=== PATIENT | female | born 1945 | race Caucasian/White ===

== ENCOUNTER 2017-02-18 11:54 | Outpatient (CLI) | payer MEDICARE, BC ==
[2017-02-18 19:43] LABS: BASOPHILS # (AUTO) 0.1 10^3/uL (0.0-0.1); BASOPHILS % (AUTO) 1.2 %; EOSINOPHILS % (AUTO) 0.7 %; HCT - HEMATOCRIT 45.9 % (37.0-47.0); HGB - HEMOGLOBIN 15.1 g/dL (12.0-16.0); LYMPHOCYTES # (AUTO) 1.3 10^3/uL (1.5-3.5); LYMPHOCYTES % (AUTO) 18.3 %; MEAN CORPUSCULAR HEMOGLOBIN 31.6 pg (27.0-31.0); MEAN CORPUSCULAR HGB CONC 32.8 g/dL (32.0-36.0); MEAN CORPUSCULAR VOLUME 96.4 fL (81.0-99.0); MEAN PLATELET VOLUME 10.8 fL (7.9-10.8); MONOCYTES # (AUTO) 0.5 10^3/uL (0.0-1.0); MONOCYTES % (AUTO) 7.7 %; NEUTROPHILS % (AUTO) 72.1 %; NUCLEATED RED BLOOD CELLS AUTO 0.2 /100WBC; RED BLOOD COUNT 4.77 10^6/uL (4.20-5.40); RED CELL DISTRIBUTION WIDTH 13.6 % (12.0-15.0); UNCORRECTED WHITE BLOOD COUNT 6.9 x10^3/uL; WHITE BLOOD COUNT 6.9 x10^3/uL (4.8-10.8)
[2017-02-18 19:51] LABS: ALBUMIN/GLOBULIN RATIO 1.3 (1.0-2.2); BILIRUBIN,TOTAL 0.8 mg/dL (0.2-1.0); BUN - BLOOD UREA NITROGEN 19 mg/dL (6-20); CALCIUM 9.7 mg/dL (8.5-10.3); CARBON DIOXIDE - CO2 29 mmol/L (21-32); CHLORIDE 100 mmol/L (101-111); CHOL/HDL RATIO 2.6 (<4.4); CHOLESTEROL 240 mg/dL; CREATININE 1.4 mg/dL (0.4-1.0); GFR - MDRD 37 (>89); GLUCOSE 88 mg/dL (70-100); HDL CHOLESTEROL 94 mg/dL; LDL/HDL RATIO 1.3 (<4.4); SODIUM 138 mmol/L (135-145); TOTAL PROTEIN 7.5 g/dL (6.7-8.2); TRIGLYCERIDES 103 mg/dL; VLDL CHOLESTEROL 21 mg/dL
== END 2017-02-18 11:55 | disposition home or self-care (01) ==
LOC: LAB.WCP 11:54
PROVIDERS: ATTEND Family Medicine
DX: R06.02 Shortness of breath (principal); Z13.220 Encounter for screening for lipoid disorders
CPT/HCPCS: 36415; 80053; 80061; 83880; 85025

== ENCOUNTER 2019-02-16 07:16 | Outpatient (CLI) | payer MEDICARE, BC ==
[2019-02-16 12:53] LABS: BASOPHILS # (AUTO) 0.1 10^3/uL (0.0-0.1); BASOPHILS % (AUTO) 1.3 %; EOSINOPHILS # (AUTO) 0.3 10^3/uL (0.0-0.7); EOSINOPHILS % (AUTO) 4.6 %; HGB - HEMOGLOBIN 15.6 g/dL (12.0-16.0); LYMPHOCYTES # (AUTO) 2.5 10^3/uL (1.5-3.5); LYMPHOCYTES % (AUTO) 41.7 %; MEAN CORPUSCULAR HGB CONC 31.5 g/dL (32.0-36.0); MEAN CORPUSCULAR VOLUME 101.6 fL (81.0-99.0); MONOCYTES # (AUTO) 0.6 10^3/uL (0.0-1.0); MONOCYTES % (AUTO) 10.4 %; NEUTROPHILS # (AUTO) 2.5 10^3/uL (1.5-6.6); NEUTROPHILS % (AUTO) 41.8 %; PLT - PLATELET COUNT 191 10^3/uL (130-450); RED BLOOD COUNT 4.88 10^6/uL (4.20-5.40); RED CELL DISTRIBUTION WIDTH 13.6 % (12.0-15.0); WHITE BLOOD COUNT 6.1 x10^3/uL (4.8-10.8)
[2019-02-16 13:18] LABS: ALBUMIN/GLOBULIN RATIO 1.2 (1.0-2.2); ALKALINE PHOSPHATASE 56 IU/L (42-121); ALT ALANINE AMINOTRANSFERASE 20 IU/L (10-60); AST ASPARTATE AMINOTRANSFERASE 28 IU/L (10-42); BILIRUBIN,TOTAL 0.7 mg/dL (0.2-1.0); BUN - BLOOD UREA NITROGEN 15 mg/dL (6-20); CALCIUM 10.1 mg/dL (8.5-10.3); CARBON DIOXIDE - CO2 28 mmol/L (21-32); CHLORIDE 102 mmol/L (101-111); CHOL/HDL RATIO 2.4 (<4.4); CHOLESTEROL 232 mg/dL; CREATININE 1.2 mg/dL (0.4-1.0); GFR - MDRD 44 (>89); GLUCOSE 95 mg/dL (70-100); HDL CHOLESTEROL 98 mg/dL; LDL CHOLESTEROL,CALCULATED 119 mg/dL; LDL/HDL RATIO 1.2 (<4.4); SODIUM 144 mmol/L (135-145); TOTAL PROTEIN 7.4 g/dL (6.7-8.2); VLDL CHOLESTEROL 15 mg/dL
== END 2019-02-16 23:59 | disposition home or self-care (01) ==
LOC: LAB.WCP 07:16
PROVIDERS: ATTEND Family Medicine
DX: M89.9 Disorder of bone, unspecified (principal); E78.5 Hyperlipidemia, unspecified
CPT/HCPCS: 36415; 80053; 80061; 83721; 85025

== ENCOUNTER 2019-02-22 08:00 | Outpatient (CLI) | payer MEDICARE, BC ==
[2019-02-22 18:32] LABS: BASOPHILS # (AUTO) 0.1 10^3/uL (0.0-0.1); EOSINOPHILS # (AUTO) 0.1 10^3/uL (0.0-0.7); EOSINOPHILS % (AUTO) 2.1 %; HGB - HEMOGLOBIN 14.2 g/dL (12.0-16.0); LYMPHOCYTES # (AUTO) 1.8 10^3/uL (1.5-3.5); LYMPHOCYTES % (AUTO) 29.3 %; MEAN CORPUSCULAR HEMOGLOBIN 31.7 pg (27.0-31.0); MEAN CORPUSCULAR HGB CONC 30.9 g/dL (32.0-36.0); MEAN CORPUSCULAR VOLUME 102.5 fL (81.0-99.0); MONOCYTES # (AUTO) 0.5 10^3/uL (0.0-1.0); MONOCYTES % (AUTO) 8.4 %; NEUTROPHILS # (AUTO) 3.6 10^3/uL (1.5-6.6); PLT - PLATELET COUNT 185 10^3/uL (130-450); RED BLOOD COUNT 4.48 10^6/uL (4.20-5.40); RED CELL DISTRIBUTION WIDTH 13.3 % (12.0-15.0); WHITE BLOOD COUNT 6.1 x10^3/uL (4.8-10.8)
== END 2019-02-22 23:59 | disposition home or self-care (01) ==
LOC: LAB.WCP 08:00
PROVIDERS: ATTEND Family Medicine
DX: R53.83 Other fatigue (principal); D75.1 Secondary polycythemia
CPT/HCPCS: 36415; 84443; 85025

== ENCOUNTER 2019-05-01 09:26 | Outpatient (CLI) | payer MEDICARE, BC ==
[~2019-05-01 09:26] MED LIST: ALBUTEROL NEB 2.5 MG/3 ML INH SCH
== END 2019-05-01 09:27 | disposition home or self-care (01) ==
LOC: RT 09:26
PROVIDERS: ATTEND Family Medicine
DX: J44.9 Chronic obstructive pulmonary disease, unspecified (principal)
CPT/HCPCS: 94060; 94375; 94664; 94729

== ENCOUNTER 2020-01-02 15:52 | Outpatient (CLI) | payer MEDICARE, BC ==
--- NOTE | 2020-01-02 16:18 | XRAY Report ---
Reason: COPD Procedure Date: 01/02/2020 Accession Number: [id number] / [id number] Procedure: WCP - Chest 2 View X-Ray CPT Code: 87000 Final Report FULL RESULT: PROCEDURE: Chest 2 View X-Ray INDICATIONS: COPD TECHNIQUE: 2 view(s) of the chest. COMPARISON: 02/18/2017 chest radiographs FINDINGS: Surgical changes and devices: None. Lungs and pleura: Hyperexpanded lungs with flattened hemidiaphragms and enlarged retrosternal airspace. Hyperlucent appearance to the lungs consistent with emphysema. No pleural effusions or pneumothorax. Lungs are clear. Mediastinum: Mediastinal contours are normal. Heart size is normal. Bones and chest wall: Exaggerated kyphosis in the mid and upper thoracic spine with associated chronic-appearing wedging. No suspicious bony abnormalities. Soft tissues appear unremarkable. IMPRESSION: Findings of COPD and emphysema. No acute cardiopulmonary process demonstrated. Reviewed by: David Coulter MD on 01/02/2020 4:17 PM PDT Approved by: David Coulter MD on 01/02/2020 4:17 PM PDT Station ID: [id number]
== END 2020-01-02 23:59 | disposition home or self-care (01) ==
LOC: DI.WCP 15:52
PROVIDERS: ATTEND Family Medicine
DX: J43.9 Emphysema, unspecified (principal)
CPT/HCPCS: 71046

== ENCOUNTER 2020-12-12 10:00 | Outpatient (CLI) | payer MEDICARE, BC ==
--- NOTE | 2020-12-12 12:57 | XRAY Report ---
PROCEDURE: Chest 2 View X-Ray INDICATIONS: COPD, ACUTE EXACERBATION TECHNIQUE: 2 view(s) of the chest. COMPARISON: None. FINDINGS: Surgical changes and devices: None. Lungs and pleura: The lungs are hyperexpanded consistent with underlying emphysema. No acute airspac e opacity. No pleural effusions or pneumothorax. Lungs are clear. Mediastinum: Mediastinal contours are normal. Heart size is normal. The aorta is tortuous. Bones and chest wall: No suspicious bony abnormalities. Soft tissues appear unremarkable. IMPRESSION: 1. No acute cardiopulmonary abnormality. 2. COPD. Reviewed by: Mathieu Castro on 12/12/2020 12:56 PM PDT Approved by: Mathieu Castro on 12/12/2020 12:56 PM PDT Station ID: [id number]
== END 2020-12-12 23:59 | disposition home or self-care (01) ==
LOC: DI.N 10:00
PROVIDERS: ATTEND Family Medicine
DX: J44.9 Chronic obstructive pulmonary disease, unspecified (principal); R05 Cough; Z20.822 Contact with and (suspected) exposure to COVID-19
CPT/HCPCS: 71046; U0004

== ENCOUNTER 2020-12-13 10:30 | Outpatient (CLI) | payer MEDICARE, BC ==
--- NOTE | 2020-12-13 16:15 | CONSULTATION NOTE ---
Palliative Care Consultation - Referral Referring Provider: Dr. Ivelisse Larsen Time of Visit: [id number] Referral setting: Home Referral Reason: Acute Exacerbation of COPD/Goals of Care - Information Sources Records reviewed: Previous records reviewed History/Review of Systems obtained from: Patient, Family (daughter Britney present) Exam limitations: No limitations - History of Present Illness Brief History of Present Illness: This is a najma 75-year-old woman who unfortunately yesterday made contact with myself, secondary to high fever, cough, increased shortness of breath, was sent to urgent care and found to have a exacerbation, and findings on a chest x-ray that showed haziness in right lower lobe. She was started on azithromycin and prednisone, is feeling better today already, though is quite breathless and fatigued. Patient is currently followed by pulmonology, she is only on proair, she uses 2 puffs up to 3 times a day, she has had several exacerbations over the last 3 years, but no hospitalizations. She does present with cachexia, is oxygen, dependent at 3.5 L, she has had declining functional status, and requested to meet with palliative care regarding goals of care. She does understand the seriousness of her illness, but is hoping as far as goals to improve her quality of life, and receive further support regarding the management of both her progressive nature and chronic of her disease process. Patient is quite thin, cachectic, has severe kyphosis. She has diminished breath sounds throughout, she does present today with elevated blood pressure 164/92. She does have a cough, reports is yellowish-green sputum. She is quite weak. She also has multiple food allergies that also increase her phlegm. She has other than her COPD, very few health problems, though does present with suspected osteopenia. Medical/Surgical History - Past Medical History Respiratory: reports: Asthma, COPD, Emphysema Musculoskeletal: reports: Osteopenia, Other (kyphosis) - Past Surgical History General: reports: Appendectomy Social History - Living Situation Living arrangement: Other Living Situation: With family Support System: Patient recently moved in with her daughter Britney, she has been there about 2 weeks. She is quite stressed that she is trying to get her home ready to sell. 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 She is settling in, a nd it appears to be a good fit for both of them. Britney's just recently of colon cancer, so settling into a new routine. Bethany is a teacher, she will be finishing up in the next couple weeks. Family History - Family History Family History: Mother: , Cancer (age 77 brain tumor), Father: , CAD (81 CHF), Sister: Alive and Well, Brother: Alive and Well Medications/Allergies - Medications Home Medications: Ambulatory Orders Medication Instructions Recorded Confirmed Albuterol Sulfate [Proair 2 puffs INH Q6HR PRN 12/13/20 12/13/20 Respiclick] Azithromycin [Zithromax] 250 ng PO DAILY MDD 5 days 12/13/20 12/13/20 Calcium Carbonate [Calcium] 500 ng PO TID 12/13/20 12/13/20 Cholecalciferol (Vitamin D3) 3,000 units PO DAILY 12/13/20 12/13/20 [Vitamin D3] Montelukast [Singulair] 10 mg PO DAILY 12/13/20 12/13/20 predniSONE [Deltasone] 40 mg PO DAILY MDD 5 days 12/13/20 12/13/20 - Allergies Allergies/Adverse Reactions: Allergies Allergy/AdvReac Type Severity Reaction Status Date / Time doxycycline Allergy Anaphylaxis Verified 12/13/20 16:28 codeine AdvReac Nausea Verified 12/13/20 16:28 Review of Systems - Constitutional Constitutional: reports: Fatigue, Fever (102 yesterday), Weakness, Poor appetite - Eyes Eyes: reports: Corrective lenses - Ears, Nose & Throat Ears, Nose & Throat: reports: Dry mouth - Cardiovascular Cardiovascular: reports: Exertional dyspnea, Decr. exercise tolerance. denies: Palpitations, Chest pain, Edema - Respiratory Respiratory: reports: Cough, Sputum production (yellow green), Wheezing, Ortho pnea, SOB at rest, SOB with exertion, Other (oxygen dependent) - Gastrointestinal Gastrointestinal: reports: Early satiety. denies: Constipation, Diarrhea, Naus ea - Genitourinary Genitourinary: denies: Incontinence - Musculoskeletal Musculoskeletal: reports: Stiffness, Muscle weakness - Neurological Neurological: reports: General weakness. denies: Memory problems - Psychiatric Psychiatric: denies: Depression, Anxiety - Hematologic/Lymphatic Hematologic/Lymph: reports: Recurrent infections (12/12) - All Other Systems All Other Systems: reports: Reviewed and negative Physical Exam - Vital Signs Temperature: 97.5 C Pulse Rate: 82 Respiratory Rate: 16 O2 Saturation: 93 (3.5 liters at rest) Blood Pressure: 164/92 - Physical Exam General Appearance: positive: Alert, Mild distress, Cachetic Eyes Bilateral: positive: Normal inspection ENT: positive: No signs of dehydration Neck: positive: Trachea midline Cardiovascular: positive: Regular rate & rhythm Respiratory: positive: Diminished throughout. negative: Wheezes, Rales, Rhonchi Abdomen: positive: Soft Skin: positive: Pallor, Dryness Extremities: positive: No pedal edema Neurologic/Psychiatric: positive: Oriented x3, Mood/affect nml, Weakness Palliative Care - POLST Patient has POLST: Yes POLST Status: DNR, Selective Treatment (completed at visit) Pain: No pain Tiredness/Fatigue: Severe (7-10) Drowsiness/Sedation: Moderate (4-6) Nausea: None Anorexia: Mild (1-3) Dyspnea: Severe (7-10) Depression: Mild (1-3) Anxiety: Mild (1-3) Feelings of wellbeing/Perceived Quality of Life: Fair, Worsening (with acute illness; recent stressors) Sleep: Sleeps well Constipation: No Performance Status: Patient has had declining functional status, able to ambulate her shorter distances as well as poor activity tolerance. She is noted this most significantly over the last couple years, and particularly over the last few. She is able to manage her ADLs, when she is well she is still driving, she just gets very exhausted if not she paces her activities. - Palliative Care Discussion: Patient previously had been really quite active, her goal is to return to some level of activity, to be able to do daily walks, is aware of the seriousness and progressiveness of her illness, but would like to improve overall her functional status. This is been a difficult year with the pandemic, getting ready to move, loss of her son-in-law. We did discuss given her goals of care, she would be a good candidate for pulmonary rehab, will see what her insurance coverage is given financial stressors as well. Patient does have DPOA paperwork done with her daughter Bethany as her main DPOA. She also has a healthcare directive, we did discuss in the context so of her wishes which is a DO NOT RESUSCITATE, it would make sense to complete a POLST. This is completed with DN AR, patient though at this point time would certainly treat reversible conditions, except hospitalization as well as focus is on quality of life and would return somewhat to her previous level of independence. At end-of-life she would like to be at home, she is aware of hospice given her recent experience with her son-in-law. POLST was completed, copy taken to go into her records. Results - Lab Results Lab and Imaging Results: Given patient's progressive fatigue and most limiting symptom, no labs drawn since 2019, will evaluate if anemia is adding to her fatigue level as well as thyroid studies. Impression and Recommendations - Palliative Care Impression: This is a 75-year-old woman with advanced COPD, does appear she has had fairly rapid decline over the last 3 years, reviewing her cna instructor notes, reports findings were consistent with severe airflow obstruction and suggestive concomitant restrictive abnormality and reducing diffusing capacity. Patient fortunately has now also presented with an acute exacerbation of her COPD, and suspected pneumonia. She has improved in the last 24 hours. Palliative care to provide support for symptom management, advanced care planning, and anticipatory guidance Recommendations/Counseling Done: 1. COPD exacerbation. Patient is currently on steroids and azithromycin, does appear to be responding. Patient is minimally managed on ProAir Respitak, She uses 3 times a day, secondary to tightness with good response. She has continued to decrease her activity, and increased her oxygen. Unclear what her baseline will be, will explore at future visits. Instructed goal is to keep her O2 sats above 90%, without higher liter flow, does titrate accordingly. She does have an on-demand concentrator for her travels, discussed that she does feel better with her home concentrator with continuous flow versus on demand, recommended since this does limit her activity, to use the concentrator at home as she does have adequate tubing. Patient given her goals, would most likely be appropriate for pulmonary rehab, will explore if her insurance covers this. 2. Cachexia. Patient with multiple food allergies, as well as exacerbation of phlegm. Patient currently 128, would be better weight at 135 per patient's description. Counseling provided regarding finding alternative food supplements, small frequent feedings, and goal for no further weight loss, weight gain if possible. 3. Fatigue. This is multifactorial, this was even previous to her acute exacerbation, and review will rule out anemia as adding to her baseline, though certainly most likely has anemia of chronic disease as well as well follow-up on thyroid studies. Patient has had minimal interaction with healthcare system secondary to Covid pandemic. 4. Osteopenia. Patient had multiple questions, daughter appropriately concerned regarding patient's frail status and fall if she breaks the bone. Her primary had approached treating her kyphosis/osteopenia, patient been resistant. Requested that she follow-up again given appropriate concerns. 5. Advanced care planning. Patient does have DPOA documents, healthcare directive. Given patient's goals of care, we did complete a POLST with DN AR/DNI and selective treatments. Patient and daughter with good discussion regarding patient's goals of care. 75 minutes with greater than 50% of this done in counseling regarding goals of care, acute exacerbation, disease trajectory, anticipatory guidance.
== END 2020-12-13 10:31 | disposition home or self-care (01) ==
LOC: PC 10:30
PROVIDERS: ATTEND Nurse Practitioner Adult Health
DX: Z51.5 Encounter for palliative care (principal); J43.9 Emphysema, unspecified; R64 Cachexia; R53.83 Other fatigue; M85.80 Other specified disorders of bone density and structure, unspecified site; Z99.81 Dependence on supplemental oxygen; Z66 Do not resuscitate
CPT/HCPCS: 99345

== ENCOUNTER 2021-01-02 10:35 | Outpatient (CLI) | payer MEDICARE, BC ==
[2021-01-02 17:53] LABS: BASOPHILS # (AUTO) 0.1 10^3/uL (0.0-0.1); EOSINOPHILS # (AUTO) 0.2 10^3/uL (0.0-0.7); HGB - HEMOGLOBIN 14.5 g/dL (12.0-16.0); LYMPHOCYTES # (AUTO) 1.1 10^3/uL (1.5-3.5); LYMPHOCYTES % (AUTO) 18.5 %; MEAN CORPUSCULAR HGB CONC 30.9 g/dL (32.0-36.0); MEAN CORPUSCULAR VOLUME 103.8 fL (81.0-99.0); MEAN PLATELET VOLUME 13.4 fL (7.9-10.8); MONOCYTES # (AUTO) 0.5 10^3/uL (0.0-1.0); MONOCYTES % (AUTO) 8.5 %; NEUTROPHILS # (AUTO) 4.1 10^3/uL (1.5-6.6); NEUTROPHILS % (AUTO) 68.8 %; PLT - PLATELET COUNT 191 10^3/uL (130-450); RED BLOOD COUNT 4.53 10^6/uL (4.20-5.40); RED CELL DISTRIBUTION WIDTH 13.2 % (12.0-15.0)
[2021-01-02 17:57] LABS: ALBUMIN 4.1 g/dL (3.2-5.5); ALBUMIN/GLOBULIN RATIO 1.5 (1.0-2.2); BILIRUBIN,TOTAL 0.9 mg/dL (0.2-1.0); CALCIUM 10.3 mg/dL (8.5-10.3); POTASSIUM 4.2 mmol/L (3.5-5.0); TOTAL PROTEIN 6.9 g/dL (6.7-8.2)
[2021-01-02 18:13] LABS: T4 (THYROXINE) 7.85 ug/dL (6.09-12.23)
[2021-01-02 18:17] LABS: THYROID STIMULATING HORMONE 2.51 uIU/mL (0.34-5.60)
== END 2021-01-02 10:36 | disposition home or self-care (01) ==
LOC: LAB.N 10:35
PROVIDERS: ATTEND Nurse Practitioner Adult Health
DX: D64.9 Anemia, unspecified (principal); R53.83 Other fatigue; Z79.899 Other long term (current) drug therapy
CPT/HCPCS: 36415; 80053; 84436; 84443; 85025

== ENCOUNTER 2021-05-08 12:45 | Outpatient (CLI) | payer MEDICARE, BC ==
--- NOTE | 2021-05-08 15:39 | CONSULTATION NOTE ---
Palliative Care Follow Up - Referral Referring Provider: Dr. Atiya Guo Time of Visit: [id number] Referral setting: Home Referral Reason: Advanced COPD/Anxiety - Information Sources Records reviewed: Previous records reviewed History/Review of Systems obtained from: Patient Exam limitations: No limitations - History of Present Illness Update Brief HPI Update: This is a najma 76-year-old woman who has advanced COPD, originally admitted to palliative care in December 2020, with following a exacerbation of her COPD. She had another exacerbation beginning of March, but since then has continued to do okay. She has noted increased shortness of breath with activity, decreased activity tolerance, oxygen saturations have remained between 89 and 96 on 2 to 2-1/2 L. She is at 120, after 4 pound weight loss. She is doing shakes, she is challenged because of food allergies. She reports she is sleeping okay, n onproductive cough. Denies tightness or wheezing. Does need frequent rest periods with any kind of activity but is able to manage her ADLs and continue to drive. Patient's goals are to focus on quality of life, is hoping to improve as far as functionality, though does understand she is diminishing with her respiratory status and some functional decline. She does now have a new walker that is more upright, bending over her walker was causing some increased back pain. She lives with her daughter, her grandson is present and supportive as well. Past Medical History: Asthma, COPD, emphysema, osteopenia, kyphosis, Social History - Living Situation Living arrangement: Other Living Situation: With family Support System: Patient lives with her daughter Bethany, she has finalized to sell of her house. This was quite a stressful time for her, she feels like she is doing better. 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 She finds her self settling in. And feeling much more comfortable, reports her mood is elevated. Medications/Allergies - Medications Home Medications: Ambulatory Orders Medication Instructions Recorded Confirmed Albuterol Sulfate [Proair 2 puffs INH Q6HR PRN 12/13/20 05/09/21 Respiclick] Calcium Carbonate [Calcium] 1,000 ng PO BID 12/13/20 05/09/21 Cholecalciferol (Vitamin D3) 1,000 units PO DAILY 12/13/20 05/09/21 [Vitamin D3] Montelukast [Singulair] 10 mg PO DAILY 12/13/20 05/09/21 Acetylcysteine [Nac] 1 tab PO DAILY 05/09/21 05/09/21 Lactobacillus Acidophilus 1 cap PO DAILY 05/09/21 05/09/21 [Digestive Probiotic] Mecobalamin [B12 Active] 5,000 mcg PO DAILY 05/09/21 05/09/21 Multivit-Min/Vit C/Herb No.124 1 tab PO DAILY 05/09/21 05/09/21 [Airborne Chewable Tablet] Multivitamin/Iron/Folic Acid 1 tab PO DAILY 05/09/21 05/09/21 [Centrum Adults Tablet] Oregano Oil 1 cap PO DAILY 05/09/21 Zinc Gluconate [Zinc] 50 mg PO DAILY 05/09/21 05/09/21 - Allergies Allergies/Adverse Reactions: Allergies Allergy/AdvReac Type Severity Reaction Status Date / Time doxycycline Allergy Anaphylaxis Verified 12/13/20 16:28 codeine AdvReac Nausea Verified 12/13/20 16:28 Review of Systems - Constitutional Constitutional: reports: Fatigue, Weakness, Weight loss (120) - Eyes Eyes: reports: Corrective lenses - Cardiovascular Cardiovascular: reports: Exertional dyspnea, Decr. exercise tolerance - Respiratory Respiratory: reports: Cough, SOB at rest, SOB with exertion - Gastrointestinal Gastrointestinal: reports: Early satiety - Musculoskeletal Musculoskeletal: reports: Stiffness, Muscle weakness - Neurological Neurological: reports: General weakness - Psychiatric Psychiatric: reports: Anxiety. denies: Depression - Hematologic/Lymphatic Hematologic/Lymph: reports: Recurrent infections (last treated 03/05) - All Other Systems All Other Systems: reports: Reviewed and negative Physical Exam - Vital Signs Temperature: 97.2 C Pulse Rate: 86 Respiratory Rate: 18 O2 Saturation: 94 (2 liters at rest ) Blood Pressure: 144/84 - Physical Exam General Appearance: positive: Alert, Cachetic Eyes Bilateral: positive: Normal inspection ENT: positive: No signs of dehydration Neck: positive: Trachea midline Cardiovascular: positive: Regular rate & rhythm Respiratory: positive: No respiratory distress (increase RR with activity), Diminished throughout. negative: Wheezes Abdomen: positive: Soft Skin: positive: Pallor, Dryness Extremities: positive: No pedal edema Neurologic/Psychiatric: positive: Oriented x3, Mood/affect nml, Weakness Palliative Care - POLST Patient has POLST: Yes POLST Status: DNR, Selective Treatment Pain: Pain improved, Location (back with walker use) Sleep: Sleeps well Constipation: No Performance Status: Patient with worsening activity tolerance, does need to take frequent rests. Has been less active since she has moved into her daughter's house, has a new w alker, is hoping to start walking and build endurance. Denies any respiratory distress with activity, just needs recovery time. - Palliative Care Discussion: Patient feels like she is settling into daughter's house, feels mood is elevated and less depressed without having to deal with transition and selling of home. She does feel well supported, her grandson is available to provide her both companionship but also practical support. Counseling provided regarding expectations in the context of "recovery", discussed COPD particularly in the context of her advanced state, is progressive, most likely will continue, and will be oxygen dependent. She was hoping to "get better" to get off oxygen. She does not seem distressed by this information, but trying to accommodate it. She does have a POLST with DN AR/DNI and selective treatments, would continue to treat respiratory illnesses does not want aggressive measures. Impression and Recommendations - Palliative Care Impression: THis a 76-year-old woman with advanced COPD, has had ongoing decline. Patient's last exacerbation of her COPD was 03/05/2021, is quite frail, with decreasing activity tolerance, increased shortness of breath, but is settling well into her new environment. Palliative care providing support for anticipatory guidance, advanced care planning, and symptom management. Recommendations/Counseling Done: 1. COPD. Patient continues with increasing shortness of breath, decreasing activity tolerance, no recent exacerbations. Counseling provided regarding expected disease progression, pacing of activities, oxygen use, and answered questions in the context of curiosities relating to use of oxygen and medications. Patient does have albuterol inhaler, had "abandoned" it as she was using it to get off her oxygen, encouraged to trial to see if it gives her any relief. 2. Cachexia. Patient with multiple food allergies, unfortunately it exacerbates her phlegm. Patient was 128 on 6 1, is now 120. Patient has been using whey shakes of almost 2000 courtney daily, does find it challenging with early satiety. Goal at this point in time is no further weight loss. 3. Fatigue. This is multifactorial, patient is wanting to increase her endurance. We did discuss possibility of physical therapy referral, had declined pulmonary rehab. Given 3 options, request that she let me know so I can send prescription. 4. Anxiety. Patient does seem to be settling in, does feel well supported, she is finding activities that are bringing her meaning. Her deepika is quite important to her. At this point in time would not recommend any medication, had explored this previously. 5. Advanced care planning. Patient does have Bethany her daughter is her main DPOA, she does have a POLST with a DO NOT RESUSCITATE and selective treatments. Goals remain to focus on quality of life. She is hoping for both quality and quantity but does not want any aggressive measures. Patient's with questions regarding insurance, encouraged to follow-up with Radha volunteer through [facility]. 45 minutes with greater than 50% of this done in counseling regarding disease trajectory, oxygen use, symptom management, and anticipatory guidance.
== END 2021-05-08 12:46 | disposition home or self-care (01) ==
LOC: PC 12:45
PROVIDERS: ATTEND Nurse Practitioner Adult Health
DX: Z51.5 Encounter for palliative care (principal); J43.9 Emphysema, unspecified; F41.9 Anxiety disorder, unspecified; M85.80 Other specified disorders of bone density and structure, unspecified site; M40.209 Unspecified kyphosis, site unspecified; Z66 Do not resuscitate; M54.9 Dorsalgia, unspecified; R64 Cachexia; R53.83 Other fatigue
CPT/HCPCS: 99349

== ENCOUNTER 2021-07-01 12:14 | Outpatient (CLI) | payer MEDICARE, BC ==
[2021-07-01 17:58] LABS: BASOPHILS # (AUTO) 0.1 10^3/uL (0.0-0.1); BASOPHILS % (AUTO) 1.1 %; EOSINOPHILS # (AUTO) 0.1 10^3/uL (0.0-0.7); EOSINOPHILS % (AUTO) 2.5 %; HCT - HEMATOCRIT 46.8 % (37.0-47.0); HGB - HEMOGLOBIN 13.9 g/dL (12.0-16.0); LYMPHOCYTES % (AUTO) 17.6 %; MEAN CORPUSCULAR HEMOGLOBIN 31.7 pg (27.0-31.0); MEAN CORPUSCULAR HGB CONC 29.7 g/dL (32.0-36.0); MEAN CORPUSCULAR VOLUME 106.8 fL (81.0-99.0); MEAN PLATELET VOLUME 12.9 fL (7.9-10.8); MONOCYTES # (AUTO) 0.4 10^3/uL (0.0-1.0); MONOCYTES % (AUTO) 7.6 %; PLT - PLATELET COUNT 153 10^3/uL (130-450); RED BLOOD COUNT 4.38 10^6/uL (4.20-5.40); RED CELL DISTRIBUTION WIDTH 12.6 % (12.0-15.0); WHITE BLOOD COUNT 5.7 x10^3/uL (4.8-10.8)
[2021-07-01 19:10] LABS: ALBUMIN 4.5 g/dL (3.2-5.5); ALBUMIN/GLOBULIN RATIO 1.5 (1.0-2.2); ALKALINE PHOSPHATASE 54 IU/L (42-121); ALT ALANINE AMINOTRANSFERASE 17 IU/L (10-60); AST ASPARTATE AMINOTRANSFERASE 27 IU/L (10-42); BILIRUBIN,TOTAL 0.8 mg/dL (0.2-1.0); BUN - BLOOD UREA NITROGEN 22 mg/dL (6-20); CALCIUM 11.9 mg/dL (8.5-10.3); CHLORIDE 91 mmol/L (101-111); CHOL/HDL RATIO 2.6 (<4.4); CHOLESTEROL 280 mg/dL; CREATININE 1.3 mg/dL (0.4-1.0); GFR - MDRD 40 (>89); GLUCOSE 94 mg/dL (70-100); HDL CHOLESTEROL 109 mg/dL; LDL CHOLESTEROL,CALCULATED 154 mg/dL; LDL/HDL RATIO 1.4 (<4.4); POTASSIUM 4.3 mmol/L (3.5-5.0); SODIUM 144 mmol/L (135-145); TOTAL PROTEIN 7.5 g/dL (6.7-8.2); TRIGLYCERIDES 86 mg/dL; VLDL CHOLESTEROL 17 mg/dL
[2021-07-01 19:20] LABS: CARBON DIOXIDE - CO2 43 mmol/L (21-32)
== END 2021-07-01 23:59 | disposition home or self-care (01) ==
LOC: LAB.WCP 12:14
PROVIDERS: ATTEND Physician Assistant Medical
DX: E78.5 Hyperlipidemia, unspecified (principal); J44.9 Chronic obstructive pulmonary disease, unspecified
CPT/HCPCS: 36415; 80053; 80061; 83721; 85025

== ENCOUNTER 2021-07-10 14:01 | Outpatient (CLI) | payer MEDICARE, BC | END 2021-07-10 14:02 | disposition home or self-care (01) | LOC: LAB.R 14:01 | PROVIDERS: ATTEND Family Medicine | DX: U07.1 COVID-19 (principal) ==